=== PATIENT | female | born 1995 | race African-American/Black ===

== ENCOUNTER 2017-01-27 09:02 | Emergency (ER) | payer OTHER, MEDICAID ==
[~2017-01-27] VITALS: Ht 160 cm; Wt 50.0 kg
[2017-01-27] MEDS ORDERED: IBUPROFEN 400MG TABLET PO ONE (11:45)
[2017-01-27] MEDS ORDERED: ACETAMINOPHEN 500MG TABLET PO ONE (11:45)
[2017-01-27 13:19] VITALS: BP 123/75
== END 2017-01-27 14:10 | disposition home or self-care (01) ==
LOC: ER 09:59
DX: S90.31XA Contusion of right foot, initial encounter (principal); M79.89 Other specified soft tissue disorders; W01.0XXA Fall on same level from slipping, tripping and stumbling without subsequent striking against object, initial encounter; Y93.89 Activity, other specified; Y92.018 Other place in single-family (private) house as the place of occurrence of the external cause
CPT/HCPCS: 73630; 81025; 99284